=== PATIENT | female | born 1955 | race Caucasian/White ===

== ENCOUNTER 2016-11-05 18:10 | Emergency (ER) ==
--- NOTE | 2016-11-05 19:09 | PROVIDER DOCUMENTATION ---
HPI-Headache - General Chief Complaint: Headache Stated Complaint: RI[facility], NAUSEA Time Seen by Provider: 11/05/16 18:32 Source: patient Allergies/Adverse Reactions: Patient Allergies Allergy/AdvReac Type Severity Reaction Status Date / Time omeprazole Allergy Mild red and Verified 11/05/16 19:10 rash Home Medications: Biotin 5 mg PO DAILY 06/22/16 Estradiol 20 mg PO DAILY 06/22/16 Furosemide [Lasix] 40 mg PO QAM 06/22/16 Potassium Chloride 10 meq PO DAILY 06/22/16 - History of Present Illness-Headache Nature of Presenting Problem: 61 year old WF presents with c/o headache, onset this morning upon awakening. pt had a mylogram yesterday at [facility] for chronic low back pain and paraphorous syndrome. pt reports she has been drinkinglots of caffeine and oral fluids. pt reports she has a history of chronic low back pain/lower extremity numbness/tingling, this is all unchanged since procedure yesterday. pt denies loss of bowel or bladder. Headache Location: reports: frontal Quality of Pain: reports: aching, dull Severity: reports: mild Onset/Duration: reports: this morning Timing: reports: still present, constant, getting worse Headache Context: reports: other (mylogram). denies: nothing, CO exposure, tick bite(s), insect bite(s), head injury, meningitis exposure, while turning/ twisting head Headache History: denies: frequent headaches, chronic headaches, occasional headaches, head trauma < 24 hrs ago, head trauma > 24 hrs ago, history of migraines, other Any recent trauma/injury?: reports: none Headache severity at the maximum: mild Headache Exacerbated by:: reports: light, noise, movement, position Modifying Factors: improves with: nothing. worse with: analgesics, antacids, breathing, cold/heat therapy, coughing, defecating, eating, exercise, immobilization, lying down, massage, movement, other medication, palpation, rest , urinating, vomiting, other Similar Symptoms Previously?: No Review of Systems - Adult - REVIEW OF SYSTEMS - ADULT Constitutional: reports: no symptoms reported. denies: chills, fever, fatique Eyes: reports: no symptoms reported. denies: discharge, blurred vision, double vision Ears, Nose, Mouth & Throat: reports: no symptoms reported. denies: ear discharge, ear pain, nose pain, loose teeth, throat pain, throat swelling Cardiovascular: reports: no symptoms reported. denies: chest pain, palpitations Respiratory: reports: no symptoms reported. denies: chronic cough, cough, shortness of breath, wheezing Gastrointestinal: reports: no symptoms reported. denies: abdominal pain, diarrhea, nausea, vomiting Genitourinary: reports: no symptoms reported. denies: dysuria, hematuria, urgency Musculoskeletal: reports: no symptoms reported. denies: bone pain, joint pain, joint swelling, neck pain Integumentary: reports: no symptoms reported. denies: hives, itching, skin thickening Neurological: reports: see HPI, headache/migraines. denies: ataxia, dizziness/ vertigo, loss of balance, numbness, paresthesia, seizure, slurred speech, syncope, tremors Psychiatric: reports: no symptoms reported. denies: anxiety, anti-depressant use, panic attacks, suicidal thoughts Endocrine: reports: no symptoms reported Hematologic/Lymphatic: reports: no symptoms reported Allergic/Immunologic: reports: no symptoms reported All Other Systems: Reviewed and Negative Past History - Adult - PAST MEDICAL HISTORY-ADULT Review of Records: reports: Old Records Reviewed, Nursing Assessment Review, Medications Reviewed, Social history reviewed & non-contributory. Major Childhood Illnesses: reports: denies history Cardiovascular: reports: denies history Respiratory: reports: denies history Gastrointestinal: reports: GERD, ulcer (bleeding) Obstetrical/Gynecological: reports: denies history Genitourinary: reports: denies history Musculoskeletal: reports: denies history, chronic pain, intervertebral disc disease, neck/back injury Neurological: reports: denies history Endocrine/Immune: reports: denies history Other Conditions: reports: denies history - PRIOR SURGERIES/PROCEDURES Surgical/Procedure History: reports: appendectomy, cholecystectomy, hysterectomy , tonsillectomy, back/neck, other (fx neck surgery) - PRIOR HOSPITALIZATIONS Prior Hospitalizations: reports: none - IMMUNIZATION STATUS Childhood Immunizations: See Nurse Assessment Flu Vaccine: See Nurse Assessment - FAMILY HISTORY Family History: reviewed, not pertinent - SOCIAL HISTORY Smoking: cigarettes, greater than 1 pack/day Provider spent 3-5 mins advising pt. on dangers of tobacco.: Discussed manners to quit use, and f/u contacts for add'l counseling. Substance Use: none/never Alcohol Use Frequency: never Physical Exam- Neurological - Physical Exam-Neuro Initial Vital Signs Reviewed: Yes General Appearance: appears well, alert, mild distress Eye Exam: bilateral eye: normal inspection, PERRL, EOMI HENMT: normocephalic/atraumatic, moist mucous membranes, normal ENT inspection Head Injury: no evidence of injury Neck: non-tender, full range of motion, supple, normal inspection Respiratory: chest non-tender, lungs clear, normal breath sounds, no pleuratic chest pain, no respiratory distress, no accessory muscle use. 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 negative: abnormal eye position , abnormal gag reflex, abnormal pupil position, abnormal speech, facial asymmetry, facial droop, facial paresthesias, facial weakness, gaze palsy, tongue deviation to R, tongue deviation to L Coordination/Gait: normal finger to nose, normal gait, negative Romberg's sign Motor/Sensory: no motor deficit, no sensory deficit, no pronator drift, negative Babinski's sign. negative: weak motor strength RUE, weak motor strength LUE, weak motor strength RLE, weak motor strength LLE Neurologic: grossly normal, no motor/sensory deficits. negative: abnormal gait , aphasia, EOM palsy, facial droop, focal weakness, motor weakness Integumentary: normal color, normal turgor, warm/dry Psych/Mental Status: AL, normal mood/affect, normal thought content, normal thought process, oriented x 3 - Glascow Coma Scale Best Eye Response: (4) open spontaneously Best Verbal Response: (5) oriented Best Motor Response: (6) obeys commands Total Glascow Score: 15 Progress - PLAN OF CARE/RESULTS Progress/Plan/Lab Results: Spoke with anesthesia, they will be down for evaluation and placement of blood patch. Orders Category Date Time Status CHEST-PORTABLE [RAD] Stat Exams 11/05/16 20:23 Taken Hydromorphone [Dilaudid] Med 11/05/16 20:21 Discontinued 0.5 mg IM NOW ONE Hydromorphone [Dilaudid] Med 11/05/16 22:02 Discontinued 1 mg IV NOW ONE Ondansetron [Zofran] Med 11/05/16 20:22 Discontinued 4 mg IV NOW ONE Vital Signs - 24 hr 11/05/16 11/05/16 18:19 21:59 Temperature 97.4 F L Pulse Rate 80 63 Respiratory 18 18 Rate Blood Pressure 116/74 103/58 O2 Sat by Pulse 100 98 Oximetry - REASSESSMENT Reassessment #1 Time Reassessed: 20:24 Status: improving (pt reports her headache is resolved but she now c/o pain with inspiration. reviewed case with Dr. Carrasco) - XRAY 1 XRAY Study: Chest Impression: Normal (per Dr. Carrasco) Departure - Departure Time of Disposition Order: 20:52 DIAGNOSIS: Headache Qualifiers: Headache type: other headache syndrome Qualified Code(s): G44.89 - Other headache syndrome Disposition: HOME 01 Certified Medical Emergency: Emergent Condition: Stable Additional Instructions: Follow up with your physicians as directed. ED Follow Up Instructions: You have been treated by a care provider in the Emergency Department. These instructions are being provided to you so you can have an understanding of how to care for yourself upon discharge. Upon discharge from the Emergency Department, you are responsible for making arrangements for follow-up care by a physician of your choice. Take all prescribed medications as directed. Return to the Emergency Department immediately for any new or worsening symptoms. You may call the Physician Referral phone number at [phone] to obtain a list of Physicians who are taking new patients. Prescriptions: Hydrocodone/APAP 7.5 mg/325 mg [[place]-7.5] 1 each PO Q6H PRN PRN #10 tablet PRN Reason: Pain Referrals: Michael Judge MD [Primary Care Provider] - Instructions: Migraine Headache, [id number] Attestation - Physician/ Mid-level Attestation Patient care was provided by Mid-level provider (OPTICAL GOODS WORKER/PA):: Yes Mid-level provider:: Fawn Kang Mid-level documentation review:: The Mid-level provider documentation, treatment plan and medical decision making was reviewed by the physician who agrees with all treatment and medical decision making by the MLP.
[2016-11-05] MEDS ORDERED: DILAUDID IM ONE (20:21)
[2016-11-05] MEDS ORDERED: ZOFRAN IV ONE (20:22)
[2016-11-05 22:00] VITALS: BP 103/58
[2016-11-05] MEDS ORDERED: DILAUDID IV ONE (22:02)
--- NOTE | 2016-11-06 09:03 | Diag Imaging Result Document ---
PROCEDURE NAME: CHEST-PORTABLE - 11/05/2016 PORTABLE CHEST X-RAY, 11/05/2016: COMPARISON: 06/22/2016. FINDINGS: The lungs are normally expanded and clear. Heart size and mediastinal contours are normal. No pneumothorax or pleural effusion. IMPRESSION: Negative exam.
== END 2016-11-05 22:22 | disposition home or self-care (01) ==
LOC: ED 18:10
DX: G44.89 Other headache syndrome (principal); R11.0 Nausea; R20.0 Anesthesia of skin; R20.2 Paresthesia of skin; R42 Dizziness and giddiness; H93.19 Tinnitus, unspecified ear; M43.6 Torticollis; G89.29 Other chronic pain; M54.5 Low back pain; F17.210 Nicotine dependence, cigarettes, uncomplicated; Z79.899 Other long term (current) drug therapy; Z71.6 Tobacco abuse counseling; Z98.890 Other specified postprocedural states
CPT/HCPCS: 71010; 96374; 96376; J1170; J2405

== ENCOUNTER 2017-01-02 16:41 | Emergency (ER) ==
[2017-01-02] MEDS ORDERED: ZOFRAN ODT ONE (17:01)
[2017-01-02] MEDS ORDERED: ZOFRAN ODT PO ONE (17:02)
[2017-01-02 17:04] LABS: MANUAL DIFF NEEDED? NO
[2017-01-02 17:07] LABS: BASO% 0.1 % (0.0-0.8); EOS# 0.03 X1000 (0.0-0.7); EOS% 0.2 % (0.0-10.0); IMM GRAN# 0.04 X1000 (0.0-0.04); IMM GRAN% 0.3 % (0.0-0.5); LYMPH# 1.13 X1000 (1.2-3.4); LYMPH% 9.1 % (20.5-51.1); MCH 32.1 PG (27-31); MCHC 34.9 g/dL (33-37); MCV 92.1 FL (81-99); MONO# 1.02 X1000 (0.11-0.59); MONO% 8.2 % (1.7-9.3); MPV 9.2 FL (7.4-10.4); NEUT% 82.1 % (42.2-75.2); PLT 360 X1000 (130-400); RBC 4.67 XMIL (4.2-5.4)
[2017-01-02 17:16] LABS: URINE CULTURE NEEDED? NO; URINE MICRO REVIEW NEEDED? NO; URINE SOURCE CLEAN CATCH
[2017-01-02] MEDS ORDERED: PROTONIX IV ONE (17:24)
[2017-01-02] MEDS ORDERED: SODIUM CHLORIDE 0.9% INJ ONE ×2 (17:24→17:47)
[2017-01-02] MEDS ORDERED: NS 1,000 ML IV ONE (17:24)
[2017-01-02 17:31] LABS: AGAP 14; ALBUMIN 4.1 g/dL (3.5-5.0); ALKALINE PHOSPHATASE 72 U/L (32-104); AMYLASE 81 U/L (20-200); BUN 29 mg/dL (8-22); CALCIUM 8.9 mg/dL (8.8-10.2); CHLORIDE 93 mmol/L (98-107); COSMO 281; GOT 20 U/L (10-30); GPT 25 U/L (10-36); LIPASE 23 U/L (13-60); POTASSIUM 4.9 mmol/L (3.5-5.1); SODIUM 135 mmol/L (136-145); TCO2 28 mmol/L (25-35); TOTAL BILIRUBIN 0.15 mg/dL (0.20-1.00); TOTAL PROTEIN 6.9 g/dL (6.3-8.3)
[2017-01-02 17:32] LABS: BILIRUBIN URINE NEGATIVE (NEGATIVE); BLOOD URINE NEGATIVE (NEGATIVE); COLOR YELLOW; GLUCOSE URINE NEGATIVE (NEGATIVE); LEUKOCYTES URINE NEGATIVE (NEGATIVE); NITRITE URINE NEGATIVE (NEGATIVE); PH URINE 6.5; PROTEIN URINE NEGATIVE (NEGATIVE); SP GRAVITY URINE 1.028; TURBIDITY URINE CLEAR (CLEAR); UROBILINOGEN URINE 2 mg/dL (NORMAL)
[2017-01-02 17:33] LABS: UR EPITHELIAL CELLS <10 /HPF (<10); URINE BACTERIA NEGATIVE /HPF; URINE RBC <10 /HPF (<10); URINE WBC <10 /HPF (<10)
[2017-01-02] MEDS ORDERED: MORPHINE IV ONE (17:44)
[2017-01-02] MEDS ORDERED: ZOFRAN IV ONE (17:44)
[2017-01-02] MEDS ORDERED: G.I. COCKTAIL PO ONE (17:45)
--- NOTE | 2017-01-02 17:45 | PROVIDER DOCUMENTATION ---
HPI-Abdominal Pain/GI Problem - General Chief Complaint: Abdominal Pain Stated Complaint: ABD PAIN/VOMITING BLOOD Time Seen by Provider: 01/02/17 17:07 Source: patient Allergies/Adverse Reactions: Patient Allergies Allergy/AdvReac Type Severity Reaction Status Date / Time omeprazole Allergy Mild red and Verified 01/02/17 16:57 rash Home Medications: Home Medication List Medication Instructions Recorded Confirmed Last Taken Type Biotin 5 mg PO DAILY 06/22/16 01/02/17 11/05/16 History Estradiol 2 mg PO DAILY 06/22/16 01/02/17 01/02/17 08:00 History Furosemide [Lasix] 40 mg PO QAM 06/22/16 01/02/17 01/02/17 08:00 History Potassium Chloride 10 meq PO DAILY 06/22/16 01/02/17 01/02/17 08:00 History Hydrocodone/APAP 7.5 mg/325 mg 1 each PO Q6H PRN PRN #10 tablet 11/05/1601/02/17 12:00 Rx [[place]-7.5] Bisacodyl [Dulcolax] 10 mg NE QHS #20 supp 01/02/17 Unknown Rx Ciprofloxacin HCl [Cipro] 500 mg PO BID #20 tablet 01/02/17 Unknown Rx Dexamethasone 4 mg PO DIRECTED 01/02/17 01/02/17 01/02/17 08:00 History Glycerin 1 each RC HS 01/02/17 01/02/17 01/01/17 20:00 History Magnesium Hydroxide [Milk of 30 ml PO BID 01/02/17 01/02/17 01/01/17 20:00 History Magnesia] Melatonin 10 mg PO HS 01/02/17 01/02/17 01/01/17 20:00 History Methocarbamol 750 mg PO Q8HR PRN 01/02/17 01/02/17 01/02/17 12:00 History Methylcellulose [Fiber] 500 mg PO DIRECTED 01/02/17 01/02/17 01/01/17 20:00 History Metronidazole [Flagyl] 500 mg PO BID #20 tablet 01/02/17 Unknown Rx Polyethylene Glycol 3350 [Glycolax] 225 gm PO HS 01/02/17 01/02/17 01/01/17 20: 00 History Sucralfate [Carafate] 1 gm PO DAILY #30 tablet 01/02/17 Unknown Rx - History of Present Illness-ABD Nature of Presenting Problems: Pt is a 61 y/o F c chief complaint of epigastric pain, chest pain, shortness of breath x 2 weeks. pt states she had a ortho surgery (Piriformis release) one month ago and has been on high dose steroids. She believes her gastric ulcers have become irritated. she has had decreased bm this week but denies any dark colored stool. Today, pt had an episode of vomiting that contained blood in the emesis. Pt has a h/o perforated gastric ulcer. On arrival, pt is in minimal distress and not actively vomiting. Review of Systems - Adult - REVIEW OF SYSTEMS - ADULT Constitutional: reports: no symptoms reported. denies: chills, fatique Eyes: reports: no symptoms reported. denies: blurred vision, double vision Ears, Nose, Mouth & Throat: reports: no symptoms reported. denies: ear pain, nose pain, throat pain Cardiovascular: reports: see HPI, chest pain. denies: orthopnea Respiratory: reports: see HPI, shortness of breath. denies: cough Gastrointestinal: reports: see HPI, abdominal pain, hematemesis, constipation, nausea, poor appetite, vomiting Genitourinary: reports: no symptoms reported. denies: dysuria, hematuria Musculoskeletal: reports: no symptoms reported. denies: joint pain, joint swelling Integumentary: reports: no symptoms reported. denies: itching, rash Neurological: reports: no symptoms reported. denies: numbness, paresthesia Psychiatric: reports: no symptoms reported. denies: anxiety, emotional problems Endocrine: reports: no symptoms reported. denies: cold intolerance, heat intolerance Hematologic/Lymphatic: reports: no symptoms reported. denies: blood clots, low blood count Allergic/Immunologic: reports: no symptoms reported. denies: allergic reactions , food allergy All Other Systems: Reviewed and Negative Past History - Adult - PAST MEDICAL HISTORY-ADULT Review of Records: reports: Old Records Reviewed, Nursing Assessment Review, Medications Reviewed, Social history reviewed & non-contributory. Major Childhood Illnesses: reports: denies history Cardiovascular: reports: denies history Respiratory: reports: denies history Gastrointestinal: reports: GERD, ulcer (Gastric ulcer c h/o perf) Obstetrical/Gynecological: reports: denies history Genitourinary: reports: denies history Musculoskeletal: reports: denies history, chronic pain, intervertebral disc disease, neck/back injury Neurological: reports: denies history Endocrine/Immune: reports: denies history Other Conditions: reports: denies history - PRIOR SURGERIES/PROCEDURES Surgical/Procedure History: reports: appendectomy, cholecystectomy, hysterectomy , tonsillectomy, back/neck, other (fx neck surgery) - PRIOR HOSPITALIZATIONS Prior Hospitalizations: reports: none - IMMUNIZATION STATUS Childhood Immunizations: See Nurse Assessment Flu Vaccine: See Nurse Assessment - FAMILY HISTORY Family History: reviewed, not pertinent - SOCIAL HISTORY Smoking: denies Substance Use: none/never Alcohol Use Frequency: never Living Situation: family Physical Exam-General - PHYSICAL EXAM-ADULT Initial Vital Signs Reviewed: Yes - CONSTITUTIONAL General Appearance: appears well, alert, no apparent distress - EYES Eyes: PERRL/EOMI - HEAD, EARS, NOSE, MOUTH & THROAT HENMT: normocephalic/atraumatic, moist mucous membranes, normal ENT inspection - NECK Neck: non-tender, normal inspection - RESPIRATORY Respiratory: chest non-tender, lungs clear, normal breath sounds - CARDIOVASCULAR Cardiovascular: normal peripheral pulses, regular rate, rhythm, no edema - GASTROINTESTINAL (ABDOMEN) Abdominal Exam: normal bowel sounds, soft, tenderness (epigastric) - GENITOURINARY Rectal Exam: normal exam, normal rectal tone. negative: black stool, blood streaked stool, decreased tone, hemorrhoids, mass, tenderness Hemoccult Exam: heme negative stool - MUSCULOSKELETAL Back Exam: normal inspection, no CVA tenderness, no vertebral tenderness Extremity: normal range of motion, non-tender, normal gait - SKIN Integumentary: normal color, normal turgor, warm/dry - NEUROLOGIC Neurologic: grossly normal, no motor/sensory deficits - PSYCHIATRIC Psych/Mental Status: normal mood/affect, normal thought content, normal thought process, oriented x 3 Progress - PLAN OF CARE/RESULTS Progress/Plan/Lab Results: Orders Category Date Time Status Saline Loc DIRECTED Care 01/02/17 16:53 Active NPO Diet 01/02/17 16:53 Active ABD/PELVIS/PULM ARTERIES [CT] Stat Exams 01/02/17 17:43 Taken AMYLASE [CHEM] Stat Lab 01/02/17 17:00 Completed CBC WITH ELECTRONIC DIFF [HEME] Stat Lab 01/02/17 17:00 Completed CK PROFILE [SP CHEM] Stat Lab 01/02/17 17:00 Completed COMPREHENSIVE METABOLIC PANEL [CHEM] Stat Lab 01/02/17 17:00 Completed LIPASE [CHEM] Stat Lab 01/02/17 17:00 Completed OCCULT BLOOD SCREENING [STOOL] Stat Lab 01/02/17 17:40 Completed TROPONIN T Stat Lab 01/02/17 17:00 Completed URINALYSIS W/POSS RFLX CULT [URINALYSIS] Stat Lab 01/02/17 17:12 Completed 0.9% Sodium Chloride Inj [Ns] 1,000 ml Med 01/02/17 17:24 Discontinued IV 999 mls/hr Famotidine [Pepcid] Med 01/02/17 17:47 Discontinued 20 mg IV NOW ONE Lido/Parra Alk/Al&mg Hydrox [G.i. Cocktail] Med 01/02/17 17:45 Discontinued 30 ml PO NOW ONE Morphine Med 01/02/17 17:44 Discontinued 4 mg IV NOW ONE Ondansetron Odt [Zofran Odt] Med 01/02/17 17:01 Discontinued 4 mg .ROUTE .STK-MED ONE Ondansetron Odt [Zofran Odt] Med 01/02/17 17:02 Discontinued 4 mg PO NOW ONE Ondansetron [Zofran] Med 01/02/17 17:44 Discontinued 4 mg IV NOW ONE Pantoprazole [Protonix] Med 01/02/17 17:24 Discontinued 40 mg IV NOW ONE Sodium Chloride 0.9% Med 01/02/17 17:24 Discontinued 10 ml INJ NOW ONE Sodium Chloride 0.9% Med 01/02/17 17:47 Discontinued 5 - 10 ml INJ NOW ONE EKG [EKG] Stat Ther 01/02/17 17:48 Ordered Laboratory Tests 01/02/17 01/02/17 01/02/17 17:00 17:00 17:00 WBC 12.43 H RBC 4.67 Hgb 15.0 Hct 43.0 MCV 92.1 MCH 32.1 H MCHC 34.9 RDW Std Deviation 14.1 Plt Count 360 MPV 9.2 Immature Gran % (Auto) 0.3 Neut % (Auto) 82.1 H Lymph % (Auto) 9.1 L Wink[place] % (Auto) 8.2 Eos % (Auto) 0.2 Baso % (Auto) 0.1 Immature Gran # (Auto) 0.04 Neut # (Auto) 10.20 H Lymph # (Auto) 1.13 L [place]ink[place] # (Auto) 1.02 H Eos # (Auto) 0.03 Baso # (Auto) 0.01 Sodium 135 L Potassium 4.9 Chloride 93 L Carbon Dioxide 28 Anion Gap 14 BUN 29 H Creatinine 0.7 Estimated GFR/1.73 m2 > 60 BUN/Creatinine Ratio 41 Glucose 196 H Calculated Osmolality 281 Calcium 8.9 Total Bilirubin 0.15 L AST 20 ALT 25 Alkaline Phosphatase 72 Creatine Kinase 31 Troponin T Total Protein 6.9 Albumin 4.1 Globulin 2.8 Albumin/Globulin Ratio 1.5 Amylase 81 Lipase 23 Urine Source Urine Color Urine Turbidity Urine pH Ur Specific [place] Urine Protein Ur Glucose (Stick) Ur Ketones (Stick) Urine Blood Urine Nitrite Urine Bilirubin Urobilinogen Dipstick Urine Leukocytes Urine WBC (Auto) Urine RBC (Auto) U Epithel Cells (Auto) Urine Bacteria (Auto) 01/02/17 01/02/17 17:00 17:12 WBC RBC Hgb Hct MCV MCH MCHC RDW Std Deviation Plt Count MPV Immature Gran % (Auto) Neut % (Auto) Lymph % (Auto) [place]ink[place] % (Auto) Eos % (Auto) Baso % (Auto) Immature Gran # (Auto) Neut # (Auto) Lymph # (Auto) [place]ink[place] # (Auto) Eos # (Auto) Baso # (Auto) Sodium Potassium Chloride Carbon Dioxide Anion Gap BUN Creatinine Estimated GFR/1.73 m2 BUN/Creatinine Ratio Glucose Calculated Osmolality Calcium Total Bilirubin AST ALT Alkaline Phosphatase Creatine Kinase Troponin T < 0.010 Total Protein Albumin Globulin Albumin/Globulin Ratio Amylase Lipase Urine Source CLEAN CATCH Urine Color YELLOW Urine Turbidity CLEAR Urine pH 6.5 Ur Specific [place] 1.028 Urine Protein NEGATIVE Ur Glucose (Stick) NEGATIVE Ur Ketones (Stick) NEGATIVE Urine Blood NEGATIVE Urine Nitrite NEGATIVE Urine Bilirubin NEGATIVE Urobilinogen Dipstick 2 A Urine Leukocytes NEGATIVE Urine WBC (Auto) <10 Urine RBC (Auto) <10 U Epithel Cells (Auto) <10 Urine Bacteria (Auto) NEGATIVE Vital Signs - 24 hr 01/02/17 01/02/17 16:49 18:51 Temperature 98.2 F Pulse Rate 93 H 65 Respiratory 20 16 Rate Blood Pressure 119/74 124/69 O2 Sat by Pulse 98 98 Oximetry OCCULT BLOOD - NEGATIVE - CT/MRI 1 CT Study: Abdomen, Angiogram (pulmonary), Pelvis Impression: Abnormal (No evidence of PE, no pna, stomach distended c debris, mild enterocolitis, no abscess, no free air, uncomplicated colonic diverticulosis - prelim radiology report) Departure - Departure Time of Disposition Order: 20:07 DIAGNOSIS: Enterocolitis GERD (gastroesophageal reflux disease) Qualifiers: Esophagitis presence: with esophagitis Qualified Code(s): K21.0 - Gastro- esophageal reflux disease with esophagitis Leukocytosis Qualifiers: Leukocytosis type: unspecified Qualified Code(s): D72.829 - Elevated white blood cell count, unspecified Disposition: HOME 01 Certified Medical Emergency: Emergent Condition: Stable Additional Instructions: ED Follow Up Instructions: You have been treated by a care provider in the Emergency Department. These instructions are being provided to you so you can have an understanding of how to care for yourself upon discharge. Upon discharge from the Emergency Department, you are responsible for making arrangements for follow-up care by a physician of your choice. Take all prescribed medications as directed. Return to the Emergency Department immediately for any new or worsening symptoms. You may call the Physician Referral phone number at [phone] to obtain a list of Physicians who are taking new patients. Prescriptions: Sucralfate [Carafate] 1 gm PO DAILY #30 tablet Ciprofloxacin HCl [Cipro] 500 mg PO BID #20 tablet Bisacodyl [Dulcolax] 10 mg NE QHS #20 supp Metronidazole [Flagyl] 500 mg PO BID #20 tablet Referrals: Michael Judge MD [Primary Care Provider] - Ramirez Lutz MD [STAFF PHYSICIAN] - Attestation - Physician/ ADELINA Attestation Patient care was provided by Advanced Practice Provider:: Yes Advanced Practice Provider:: Duane Fraga Advanced Practice Provider documentation review:: The Mid-level provider documentation, treatment plan and medical decision making was reviewed by the physician who agrees with all treatment and medical decision making by the P.
[2017-01-02] MEDS ORDERED: PEPCID IV ONE (17:47)
--- NOTE | 2017-01-02 18:15 | ED EKG INTERP ---
EKG Interpretation - EKG Time of EKG reading by physician:: 17:58 EKG Read and Signed by:: Zana Elam EKG Interpretation (*Must complete 3 of following elements*): Abnormal (Minimal voltage criteria for LVH, may be normal variant; Septal infarct, age undetermined) Rate: 70 Rhythm: Normal sinus rhythm Attestation - Scribe Verification/Attestation Scribe:: Benjamin Somers Acting as Scribe for:: Zana Elam Scribe documention review:: This chart was documented by a scribe and accurately reflects the service the provider performed and the decisions made by the provider.
[2017-01-02 20:36] VITALS: BP 118/69
--- NOTE | 2017-01-03 08:55 | Diag Imaging Result Document ---
PROCEDURE NAME: ABD/PELVIS/PULM ARTERIES - 01/02/2017 CT ANGIOGRAM OF PULMONARY ARTERIES WITH CONTRAST: Exam performed with intravenous contrast. Axial reformatted coronal images are obtained. A dose-reduction protocol was used. COMPARISON: Compared with CT thorax of 04/06/2013. FINDINGS: There are no filling defects identified in the pulmonary arteries. There is no indication of aortic dissection. The lungs appear essentially clear except for hazy dependent atelectasis. There is no consolidation, pleural effusion, or pneumothorax identified. There are no abnormally enlarged mediastinal lymph nodes identified. There is mild low-density prominence of the right thyroid lobe noted. IMPRESSION: 1. No evidence of pulmonary embolism. No pneumonia. 2. Mild low-density prominence of right thyroid lobe noted. CT ABDOMEN AND PELVIS WITH IV CONTRAST ONLY: Exam performed with intravenous contrast only per request of the referring provider. A dose-reduction protocol was used. COMPARISON: Compared with the without contrast exam of 05/30/2011. FINDINGS: The liver is mildly prominent in size. The spleen is mildly small, similar to the previous exam. There are no acute abnormalities of the liver, spleen, adrenal glands, or pancreas identified. The gallbladder is surgically absent. The bilateral kidneys enhance homogeneously. There is no hydronephrosis. There are no substantially enlarged lymph nodes identified. The stomach is distended with debris. There is retained fluid in small bowel and colon, some of which is slightly distended. There is some apparent mild small bowel wall thickening. There is some fecal-like material in distal small bowel, suggesting stasis. Findings suggest generalized mild enterocolitis. There is no abscess identified. There is no free air. There is no substantial free fluid. There is mild uncomplicated colonic diverticulosis, primarily at the sigmoid. Images of the pelvis, otherwise, show postsurgical changes of partial hysterectomy. There is no abnormal pelvic mass or fluid collection identified. IMPRESSION: 1. Stomach distended with debris. 2. Generalized mild enterocolitis. No abscess. No free air. 3. Mild uncomplicated colonic diverticulosis. Preliminary results were provided at 7:00 p.m. on 01/02/2017.
--- NOTE | 2017-01-05 09:16 | EKG Report ---
Test Performed on : 01/02/2017 5:58:30 PM Test Reason : CP Blood Pressure : / mmHG Vent. Rate : 070 BPM Atrial Rate : 070 BPM P-R Int : 138 ms QRS Dur : 098 ms QT Int : 390 ms P-R-T Axes : 024 -11 019 degrees QTc Int : 421 ms Normal sinus rhythm. Minimal voltage criteria for LVH, may be normal variant Septal infarct (cited on or before 01-JAN-2008) Abnormal ECG When compared with ECG of 02-JAN-2017 17:55, (Unconfirmed) No significant change was found Unconfirmed Result
== END 2017-01-02 20:40 | disposition home or self-care (01) ==
LOC: ED 16:41
DX: K52.9 Noninfective gastroenteritis and colitis, unspecified (principal); K21.0 Gastro-esophageal reflux disease with esophagitis; D72.829 Elevated white blood cell count, unspecified; R94.31 Abnormal electrocardiogram [ECG] [EKG]; R10.13 Epigastric pain; R07.9 Chest pain, unspecified; R06.02 Shortness of breath; K92.0 Hematemesis; K59.00 Constipation, unspecified; R10.816 Epigastric abdominal tenderness; G89.29 Other chronic pain; Z79.899 Other long term (current) drug therapy; Z87.19 Personal history of other diseases of the digestive system
CPT/HCPCS: 71275; 74177; 80053; 81001; 82150; 82270; 82550; 83690; 84484; 85025; 93005; C9113; J2270; J2405; J7030; Q9967; S0028; S0164